=== PATIENT | female | born 1970 | race Caucasian/White ===

== ENCOUNTER 2017-03-24 12:01 | Emergency (ER) | payer BC ==
[~2017-03-24] VITALS: Ht 172.7 cm; Wt 81.5 kg
[~2017-03-24 12:01] MED LIST: PERC5TAB12 PO; RIVA15 PO
[2017-03-24 12:04] VITALS: BP 157/75; PULSE 87; RESP 17; TEMP 98.8; O2SAT 99
--- NOTE | 2017-03-24 12:08 | PD ---
Physical Exam Time Seen by Provider: 12:05 Narrative 47yop F c/o syncopal episode at work about 45 minutes ago. Fell from desk chair to floor. Remembers hitting head. Denies vomiting. Reports CHAPMAN. Denies hx of syncope. Denies associated chest pain, SOB, heart palpitations. Patient seen in triage. VS reviewed. Patient awaiting bed placement. Data Data Last Documented VS Vital Signs Date Time Temp Pulse Resp B/P Pulse Ox O2 Delivery O2 Flow Rate FiO2 03/24/17 12:04 98.8 87 17 157/75 99 MDM Supervised Visit with OG: Carley Heller Mar 24, 2017 12:08
[2017-03-24 12:45] VITALS: BP 144/65; PULSE 64; RESP 18; TEMP 98.6; O2SAT 96
--- NOTE | 2017-03-24 13:22 | PD ---
HPI Chief Complaint: Dizziness Time Seen by Provider: 12:56 Travel History International Travel<30 days: No Contact w/Intl Traveler<30days: No Traveled to known affect area: No History of Present Illness HPI The patient was seen and examined in the presence of the nurse. This patient was seated at her desk at work and received news that her cat was medically not doing well was having some bleeding issues after surgery. She became dizzy and lightheaded and nauseous. She says that she blacked out and fell out of her chair and struck her head on the ground. She complains of left posterior headache. No neck symptoms. At this point she feels improved. Severity was moderate. Duration 5 minutes. No alleviating factors PFSH Past Medical History Arthritis: Yes Anxiety: No Depression: No Cancer: No (father from cancer, lung small cell chest) Cardiovascular Problems: Yes Diabetes: No (patient states it runs in her family) Diminished Hearing: No Endocrine: No Gastrointestinal Disorders: No Genitourinary: No Hepatitis: No Hiatal Hernia: No Hypertension: No Immune Disorder: No Medical other: No Musculoskeletal: No Neurologic: No Psychiatric: Yes (HX ANXIETY DEPRESSION) Reproductive: Yes Respiratory: Yes (HX PE in 2014) Immunizations Current: Yes Migraines: Yes (15 years ago, problem resolved) Sleep Apnea: Yes Thyroid Disease: No Influenza Vaccination: No ?: Not : 3 Para: 2 Miscarriage: 1 Past Surgical History AICD: No Gynecologic Surgery: Yes (D&C X 2) Hysterectomy: Yes (laproscopic partial) Joint Replacement: No Pacemaker: No Other Surgery: No Social History Alcohol Use: Yes (social, 2-3 week) Tobacco Use: Yes (1 ppd) Substance Use: No Allergies-Medications (Allergen,Severity, Reaction): Coded Allergies: No Known Allergies (Verified , 03/24/17) Reported Meds & Prescriptions Reported Meds & Active Scripts Active Xarelto 15 Mg Tab (Rivaroxaban) 15 Mg Tab 15 Mg PO BID Reported Percocet 5-325 mg (Oxycodone/Acetaminophen) Oxycodone 5/325 Acetaminophen Tab 1 Tab PO Q6H PRN Review of Systems General / Constitutional: No: Fever Eyes: No: Visual changes HENT: Positive: Lightheadedness, No: Headaches Cardiovascular: Positive: Syncope, No: Chest Pain or Discomfort Respiratory: No: Shortness of Breath Gastrointestinal: No: Abdominal Pain Genitourinary: No: Dysuria Musculoskeletal: No: Pain Skin: No Rash Neurologic: Positive: Dizziness, Syncope, No: Weakness Psychiatric: No: Depression Endocrine: No: Polydipsia Hematologic/Lymphatic: No: Easy Bruising Physical Exam Narrative GENERAL: Well-nourished, well-developed patient in no apparent distress. SKIN: Focused skin assessment reveals no rash and nodules. Skin is Warm and dry. HEAD: Atraumatic. Normocephalic. EYES: Pupils equal and round. No scleral icterus. No injection or drainage. ENT: No nasal bleeding or discharge. Mucous membranes pink and moist. NECK: Trachea midline. No JVD. CARDIOVASCULAR: Regular rate and rhythm. No murmur appreciated. RESPIRATORY: No accessory muscle use. Clear to auscultation. Breath sounds equal bilaterally. GASTROINTESTINAL: Abdomen soft, non-tender, nondistended. Hepatic and splenic margins not palpable. MUSCULOSKELETAL: No obvious deformities. No clubbing. No cyanosis. No edema. NEUROLOGICAL: Awake and alert. No obvious cranial nerve deficits. Motor grossly within normal limits. Normal speech. PSYCHIATRIC: Appropriate mood and affect; insight and judgment normal. Data Data Last Documented VS Vital Signs Date Time Temp Pulse Resp B/P Pulse Ox O2 Delivery O2 Flow Rate FiO2 03/24/17 17:07 62 18 116/62 95 Room Air 03/24/17 12:45 98.6 Orders Electrocardiogram (03/24/17 12:09) Iv Access Insert/Monitor (03/24/17 13:03) Complete Blood Count With Diff (03/24/17 13:03) Basic Metabolic Panel (Bmp) (03/24/17 13:03) Beta Hcg (Quant/Titer) (03/24/17 13:03) Crossing Tender / Telemetry NUNU.Q8H (03/24/17 13:03) Ct Brain W/O Iv Contrast(Rout) (03/24/17 ) D-Dimer (03/24/17 15:09) Prothrombin Time / Inr (Pt) (03/24/17 15:09) Act Partial Throm Time (Ptt) (03/24/17 15:09) Us Leg Venous Doppler (03/24/17 ) Labs Laboratory Tests Test 03/24/17 03/24/17 13:05 16:00 White Blood Count 10.4 TH/MM3 Red Blood Count 4.44 MIL/MM3 Hemoglobin 14.4 GM/DL Hematocrit 42.0 % Mean Corpuscular Volume 94.7 FL Mean Corpuscular Hemoglobin 32.4 PG Mean Corpuscular Hemoglobin 34.2 % Concent Red Cell Distribution Width 13.2 % Platelet Count 271 TH/MM3 Mean Platelet Volume 8.3 FL Neutrophils (%) (Auto) 61.9 % Lymphocytes (%) (Auto) 29.6 % Monocytes (%) (Auto) 5.1 % Eosinophils (%) (Auto) 2.4 % Basophils (%) (Auto) 1.0 % Neutrophils # (Auto) 6.5 TH/MM3 Lymphocytes # (Auto) 3.1 TH/MM3 Monocytes # (Auto) 0.5 TH/MM3 Eosinophils # (Auto) 0.2 TH/MM3 Basophils # (Auto) 0.1 TH/MM3 CBC Comment DIFF FINAL Differential Comment Sodium Level 141 MEQ/L Potassium Level 3.7 MEQ/L Chloride Level 106 MEQ/L Carbon Dioxide Level 26.3 MEQ/L Anion Gap 9 MEQ/L Blood Urea Nitrogen 13 MG/DL Creatinine 0.77 MG/DL Estimat Glomerular Filtration 81 ML/MIN Rate Random Glucose 100 MG/DL Calcium Level 9.0 MG/DL Human Chorionic Gonadotropin, LESS THAN 1 Quant MIU/ML Prothrombin Time 10.3 SEC Prothromb Time International 0.9 RATIO Ratio Activated Partial 21.7 SEC Thromboplast Time D-Dimer Quantitative (PE/DVT) 1.33 MG/L FEU [facility] Medical Decision Making Medical Screen Exam Complete: Yes Emergency Medical Condition: Yes Medical Record Reviewed: Yes Differential Diagnosis Vasovagal episode, cardiac arrhythmia, anxiety Narrative Course I have reviewed the patient's electronic medical record. IV placed CBC is normal Metabolic profile is normal Extended cardiac monitoring reveals sinus rhythm without ectopy I reviewed her EKG which shows sinus rhythm and no ST elevation Brain CT is normal No objective findings, neurologically intact. I was going to send the patient home when then she said that she is worried about a DVT in her calf. She does have left calf pain. Doesn't think she injured it. So I ordered a d-dimer which is elevated and then ultrasound which was normal Stable for outpatient follow-up Diagnosis Primary Impression: Episode of syncope Qualified Code: R55 - Vasovagal syncope Additional Instructions: The patient was advised to follow up with their physician and return if they worsen. Med/Other Pt SpecificInfo: Other Disposition: 01 DISCHARGE HOME Condition: Stable Malachi Munoz MD Mar 24, 2017 13:22
[2017-03-24 13:29] LABS: AUTOMATED NEUTROPHIL # 6.5 TH/MM3 (1.8-7.7); BASOPHIL # 0.1 TH/MM3 (0-0.2); EOSINOPHIL # 0.2 TH/MM3 (0-0.4); EOSINOPHIL % 2.4 % (0.0-4.0); HEMO FLAGS DIFF FINAL; LYMPH % 29.6 % (9.0-44.0); LYMPHOCYTE # 3.1 TH/MM3 (1.0-4.8); MEAN CELL VOLUME 94.7 FL (80.0-100.0); MEAN CORPUSCULAR HEMOGLOBIN 32.4 PG (27.0-34.0); MEAN CORPUSCULAR HGB CONC 34.2 % (32.0-36.0); MONO % 5.1 % (0.0-8.0); NEUT % 61.9 % (16.0-70.0); PLATELET COUNT 271 TH/MM3 (150-450); RED BLOOD COUNT 4.44 MIL/MM3 (4.00-5.30); RED CELL DISTRIBUTION WIDTH 13.2 % (11.6-17.2); WHITE BLOOD COUNT 10.4 TH/MM3 (4.0-11.0)
[2017-03-24 13:45] LABS: ANION GAP 9 MEQ/L (5-15); BICARBONATE 26.3 MEQ/L (21.0-32.0); BLOOD UREA NITROGEN 13 MG/DL (7-18); CHLORIDE 106 MEQ/L (98-107); GLOMERULAR FILTRATION RATE 81 ML/MIN (>89); POTASSIUM 3.7 MEQ/L (3.5-5.1); SODIUM (NA) 141 MEQ/L (136-145)
[2017-03-24 13:47] LABS: BETA HCG QUANT LESS THAN 1 MIU/ML (0-5)
--- NOTE | 2017-03-24 14:44 | RADRPT ---
EXAM DATE/TIME: 03/24/2017 14:12 [facility] COMPARISON: No previous studies available for comparison. INDICATIONS : Syncope, hit back of head RADIATION DOSE: 56.35 CTDIvol (mGy) MEDICAL HISTORY : Cardiovascular disease. SURGICAL HISTORY : Hysterectomy. ENCOUNTER: Initial ACUITY: 1 day PAIN SCALE: 0/10 LOCATION: cranial TECHNIQUE: Multiple contiguous axial images were obtained of the head. Using automated exposure control and adj ustment of the mA and/or kV according to patient size, radiation dose was kept as low as reasonably a chievable to obtain optimal diagnostic quality images. FINDINGS: CEREBRUM: 6 mm fluid density lesion in the medial right temporal lobe likely reflects a dilated Virchow-Rober s pace or atypical sulcus. Gant-white matter differentiation is maintained. The ventricles are normal f or age. No evidence of midline shift, hemorrhage or acute infarction. No extra-axial fluid collecti ons are seen. POSTERIOR FOSSA: The cerebellum and brainstem are intact. The 4th ventricle is midline. The cerebellopontine angle i s unremarkable. EXTRACRANIAL: The visualized portion of the orbits is intact. SKULL: The calvaria is intact. No evidence of significant skull fracture. CONCLUSION: 1. No acute intracranial abnormality. Riaz Villafana MD on March 24, 2017 at 14:37 Board Certified Radiologist. This report was verified electronically.
[2017-03-24 16:36] LABS: APTT (PATIENT) 21.7 SEC (24.3-30.1); INTERNATIONAL NORMALIZED RATIO 0.9 RATIO; PROTHROMBIN TIME - PATIENT 10.3 SEC (9.8-11.6)
[2017-03-24 17:07] VITALS: BP 116/62; PULSE 62; RESP 18; O2SAT 95
--- NOTE | 2017-03-24 18:51 | RADRPT ---
EXAM DATE/TIME: 03/24/2017 17:57 [facility] COMPARISON: No previous studies available for comparison. INDICATIONS : Left leg pain. MEDICAL HISTORY : Deep venous thrombosis. Sleep apnea. History of pulmonary embolism. SURGICAL HISTORY : Hysterectomy. Peridontal surgery. ENCOUNTER: Initial ACUITY: 1 day PAIN SCORE: 2/10 LOCATION: Left leg. TECHNIQUE: Venous ultrasound of the leg was performed from the inguinal ligament to the proximal calf. Real-anabelal e, color Doppler and spectral tracing, compression and augmentation techniques were used. FINDINGS: There is normal compressibility of the deep venous system from the inguinal region to the proximal ca lf. No echogenic clot is seen in the lumen of the common femoral, femoral, popliteal, and posterior tibial veins. There is a normal response of the venous system to proximal and distal augmentation an d respiration. CONCLUSION: Normal examination. Josse Chowdhury Jr., MD on March 24, 2017 at 18:48 Board Certified Radiologist. This report was verified electronically.
[2017-03-24 19:15] VITALS: BP 156/57
--- NOTE | 2017-03-25 12:19 | EKG ---
Date Performed: 03/24/2017 Time Performed: 12:15:32 PTAGE: 47 years EKG: Sinus rhythm NORMAL ECG Compared to prior tracing no significant change PREVIOUS TRACING : 12/11/2014 22.22 DOCTOR: Kamari Leon Interpretating Date/Time 03/25/2017 12:17:45
== END 2017-03-24 19:18 | disposition home or self-care (01) ==
LOC: NEPE 12:01
DX: R55 Syncope and collapse (principal); S06.9X9A Unspecified intracranial injury with loss of consciousness of unspecified duration, initial encounter; G47.30 Sleep apnea, unspecified; Z86.711 Personal history of pulmonary embolism; F17.210 Nicotine dependence, cigarettes, uncomplicated; W07.XXXA Fall from chair, initial encounter; Y93.89 Activity, other specified; Y92.89 Other specified places as the place of occurrence of the external cause; Z79.01 Long term (current) use of anticoagulants
CPT/HCPCS: 70450; 80048; 84702; 85025; 85379; 85610; 85730; 93005; 93971